=== PATIENT | male | born 1995 | race Caucasian/White ===

== ENCOUNTER 2020-05-09 08:44 | Emergency (ER) | payer OTHER, BC, SELFPAY ==
[2020-05-09 08:45] VITALS: BP 146/79; PULSE 87; RESP 16; TEMP 36.3; O2SAT 99; BMI 19.3
--- NOTE | 2020-05-09 09:11 | RAD_ITS ---
STUDY: X-RAY - LEFT HAND REASON FOR EXAM: Male, 25 years old. LAC TO LEFT INDEX FINGER FROM WORK TECHNIQUE: 3 view(s) of the hand. COMPARISON: None. FINDINGS: Normal radiocarpal articulation. Normal distal radioulnar joint. Normal visualized carpal bones. Normal carpal articulations Normal carpometacarpal articulation of the thumb. Normal second through fifth carpometacarpal joints. Normal metacarpi. Normal metacarpophalangeal joint of the thumb. Normal interphalangeal joint of the thumb. Normal proximal and distal phalanges of the thumb. Normal metacarpophalangeal joints of the second through fifth fingers. Normal proximal and distal interphalangeal joints of the second through fifth fingers. Normal phalanges of the second through fifth fingers. Radiopaque ring is seen overlying the proximal phalanx of the index finger. RAD/Hand Min 3 Views IMPRESSION: Normal x-ray examination of the hand. Electronically Signed: Meir Zuñiga, at 9:35 EDT , Service support ,
[2020-05-09] MEDS: Diphth,Pertuss(Acell),Tet Vac 0.5 ML Vial IM (09:17)
[2020-05-09] MEDS: Cefazolin 1 GM/50 ML BAG IV (09:22)
--- NOTE | 2020-05-09 09:51 | ED.VISSUMM ---
- ER Visit Summary Date of Service: 05/09/20 Chief Complaint: Left index finger laceration History of Present Illness: The patient is a 25 M presenting with left index finger laceration. He states a piece of coil came back and struck his left hand. He has a skin avulsion to his left index finger. Last tetanus is unknown. No other injuries. Physical Examination: Vitals are stable. Patient is afebrile. Alert no acute distress. HEENT exam is unremarkable. Neck is supple. Lungs are clear and equal bilaterally. Heart is regular rate and rhythm. Extremities skin avulsion dorsal aspect of left index finger. Tendon function is intact. Sensation intact. 2 small areas distal and middle of avulsion with pulsatile bleeding Skin is warm and dry. No focal neurologic deficit. Remainder of exam is unremarkable. Emergency Department Course and Treatment: Patient was given Ancef IV. He was given tetanus IM. Left hand x-ray shows normal x-ray examination of the hand. Wound was irrigated copiously. Anesthetized with digital block. Attempted to stop bleeding with 5-0 Vicryl sutures. When tournicot is removed, pulsatile bleeding continues. Discussed with orthopedics and Dr. Manzanares. Dr Manzanares is currently out of town. Discussed with [facility] for transfer. Disposition: Transfer [facility] Impression: Left index finger skin avulsion This note was generated with [employer] dictation software. It may contain incorrect words, spelling, and punctuation that were not noted in review of the chart prior to signing ED Disposition - Plan for ED Patient: Referrals: Maxx Baer MD [Primary Care Provider] -
--- NOTE | 2020-05-09 11:13 | NURSING ---
CALLED [facility], ETA IS 30 MIN
[2020-05-09 11:19] VITALS: BP 134/80; PULSE 81; RESP 16; TEMP 36.8; O2SAT 100
--- NOTE | 2020-05-09 11:37 | ED.RN ---
[facility] HERE TO TRANSPORT PATIENT, REPORT AND CARE GIVEN TO THEM, PT STATUS UNCHANGED AT THIS TIME.
== END 2020-05-09 11:37 | disposition short-term general hospital (02) ==
LOC: ED 09:13
PROVIDERS: Emergency Provider Emergency Medicine; PCP Family Medicine
DX: S61.211A Laceration without foreign body of left index finger without damage to nail, initial encounter (principal); Z23 Encounter for immunization; W26.8XXA Contact with other sharp object(s), not elsewhere classified, initial encounter; Y93.89 Activity, other specified; Y92.89 Other specified places as the place of occurrence of the external cause; Y99.0 Civilian activity done for income or pay
CPT/HCPCS: 73130; 90715; 96365; 99285; J7050; A4216

== ENCOUNTER → 2020-11-15 | Outpatient (CLI) | payer BC, SELFPAY ==
--- NOTE | 2020-11-15 | VAS_PTH ---
PATIENT: SHANIQUE DIAS LOC: [facility] U#:[id number] AGE/SX: 25/M ROOM: RE11/15/[address]: Dr. Gee Jacobson MD : 1995 BED: DIS: 11/15/2020 SPEC #: [id number] RECD: 11/15/20 13:53 STATUS: WERO [place] #: [id number] ADI: 11/15/20 00:[address]: Gee Jacobson DEPT: SURGICAL PATHOLOGY RECD BY: Nino Moyer ENTERED: 11/16/20 07:58 SP TYPE: VAS OTHR DR: Dr. Maxx Baer MD Tissues: A - Vas deferens, NOS B - Vas deferens, NOS Procedures: Surgery Specimen Level II HEADER OPERATION: Bilateral partial vasectomy PRE-OP DIAGNOSIS: Sterilization TISSUE SUBMITTED: A - Right vas deferens, B - Left vas deferens MICROSCOPIC DIAGNOSIS A. Right vas deferens, partial vasectomy: Completely transected segment of vas deferens, no pathologic diagnosis. B. Left vas deferens, partial vasectomy: Completely transected segment of vas deferens, no pathologic diagnosis. ROBERT:donte 11/19/2020 MICROSCOPIC DESCRIPTION Slides are reviewed. GROSS DESCRIPTION A - Received is one container designated right vas deferens. The specimen consists of a tubular segment of koch soft tissue measuring 0.8 cm in length and 0.2 cm in diameter. The entire specimen is submitted in one cassette. It will be sectioned at the time of embedding. B - Received is one container designated left vas deferens. The specimen consists of a tubular segment of koch soft tissue measuring 1.5 cm in length and 0.2 cm in diameter. The entire specimen is submitted in one cassette. It will be sectioned at the time of embedding. / ROBERT:donte 11/16/20 TC:4 CPT: 43021 x2
== END | disposition home or self-care (01) ==
LOC: LABSPEC 14:24
PROVIDERS: PCP Family Medicine; Referring Provider Surgery; Visit Provider Surgery
DX: Z30.2 Encounter for sterilization (principal)
CPT/HCPCS: 88302